=== PATIENT | female | born 1985 | race Hispanic/Latino ===

== ENCOUNTER 2018-07-19 16:15 | Emergency (ER) | payer SELFPAY ==
[2018-07-19] MEDS ORDERED: Ketorolac Tromethamine 30 MG/ML VIAL ONE (16:52)
[2018-07-19 16:59] LABS: Clarity SLIGHTLY (Clear)
[2018-07-19 17:00] LABS: Leukocyte Small (Negative); Nitrite Negative (Negative); Protein, Urine (Dipstick) Negative (Neg-Trace); Specific Gravity, Urine 1.003 (1.002-1.036)
[2018-07-19 17:01] LABS: Bilirubin Negative (Negative); Blood, Urine Trace (Negative); Glucose, Urine (Dipstick) Negative (Negative); Urobilinogen 0.2 mg/dL (0.2-1.0)
[2018-07-19 17:04] LABS: Bacteria/HPF 1+ HPF (None Seen); RBC/HPF 0-3 HPF (0-3); Renal Epithelial None Seen HPF (0-3); Squamous Epithelial 0-3 HPF (0-3); Transitional Epithelial NONE SEEN HPF (0-3); Trichomonas/HPF None Seen HPF (None Seen); Yeast-All Forms None Seen HPF (None Seen)
[2018-07-19 17:05] LABS: Crystals/HPF None Seen HPF (Negative); Hyaline Casts/LPF NONE SEEN LPF (0-3 Hyaline); Other Casts/LPF None Seen LPF (0-3 Hyaline); Oval Fat Bodies/HPF None Seen HPF (None Seen); Sperm/HPF None Seen HPF (None Seen)
[2018-07-19] MEDS ORDERED: traMADol HCl 50 MG TAB ONE (17:26)
[2018-07-19] MEDS ORDERED: Sulfameth/Trimethoprim DS 800-160mg TAB ONE (17:27)
[2018-07-19] MEDS ORDERED: Phenazopyridine HCl 97.5 MG TABLET ONE (17:27)
== END 2018-07-19 17:42 | disposition home or self-care (01) ==
LOC: BURERS 16:15
DX: N39.0 Urinary tract infection, site not specified (principal)
CPT/HCPCS: 81003; 81015; 87077; 87086; 87186; 96374; J1885

== ENCOUNTER 2020-06-12 21:22 | Emergency (ER) | payer SELFPAY ==
[2020-06-12 21:48] LABS: Bilirubin Negative (Negative); Blood, Urine Negative (Negative); Clarity Clear (Clear); Glucose, Urine (Dipstick) Negative (Negative); Ketone, Urine Negative (Negative); Leukocyte Trace (Negative); Nitrite Negative (Negative); Protein, Urine (Dipstick) Negative (Neg-Trace); Specific Gravity, Urine 1.015 (1.005-1.030); Urobilinogen 0.2 mg/dL (Less than 2)
[2020-06-12] MEDS ORDERED: Fentanyl 100 MCG/2 ML VIAL ONE (21:48)
[2020-06-12] MEDS ORDERED: Glycopyrrolate 0.4 MG/ 2 ML VIAL ONE (21:49)
[2020-06-12] MEDS ORDERED: Ondansetron PF 4 MG/2 ML Vial ONE (21:49)
[2020-06-12 21:58] LABS: Bacteria/HPF Rare-Few HPF (None Seen); RBC/HPF None Seen HPF (0-3); Squamous Epithelial 0-3 HPF (0-3); WBC/HPF 0-3 HPF (0-3)
[2020-06-12 22:02] LABS: #Basophils 0.1 thou/uL (0.0-0.2); #Eosinphils 0.2 thou/uL (0.0-0.7); #Lymphocytes 2.6 thou/uL (1.20-3.40); #Monocytes 0.5 thou/uL (0.11-0.59); #Neutrophils 4.5 thou/uL (1.40-6.50); %Basophils 1.3 % (0.0-1.0); %Eosinophils 2.3 % (0.0-10.0); %Lymphocytes 33.1 % (21.0-51.0); %Monocytes 5.9 % (0.0-10.0); %Neutrophils 57.4 % (42.0-75.0); Hemoglobin 16.3 g/dL (12.0-16.0); Mean Corpuscular HGB CONC 32.3 g/dL (32.0-36.0); Mean Corpuscular Hemoglobin 27.2 pg (27.0-31.0); Mean Corpuscular Volume 84.2 fL (78.0-98.0); Mean Platelet Volume 9.9 fL (7.4-10.4); Platelet Count 152 thou/uL (130-400); White Blood Cell (WBC) Count 7.9 thou/uL (4.8-10.8)
[2020-06-12 22:12] LABS: ALT (SGPT) 25 U/L (8-55); AST (SGOT) 38 U/L (5-34); Albumin 4.6 g/dL (3.5-5.0); Alkaline Phosphatase 90 U/L (40-110); Anion Gap 15 mmol/L (10-20); BUN (Urea Nitrogen) 10 mg/dL (7.0-18.7); Bilirubin, Total 0.4 mg/dL (0.2-1.2); Calc. Creatinine Clearance 0 mL/min (70-130); Calcium 9.1 mg/dL (7.8-10.44); Carbon Dioxide 25 mmol/L (22-29); Chloride 103 mmol/L (98-107); Globulin 3.7 g/dL (2.4-3.5); Glucose 98 mg/dL (70-105); Lipase 61 U/L (8-78); Potassium 3.4 mmol/L (3.5-5.1); Protein, Total 8.3 g/dL (6.0-8.3); Sodium 140 mmol/L (136-145)
[2020-06-12 22:49] LABS: Pregnancy Test - Urine (BHCG) Negative (Negative); Pregu Control Background? CLEAR/WHITE (CLR/WHITE); Pregu Control Bar Appear? YES (CONTROL BAR); Specific Gravity 1.015 (1.002-1.036)
[2020-06-12] MEDS ORDERED: Dicyclomine 20 MG TAB ONE (23:23)
[2020-06-12] MEDS ORDERED: Ketorolac Tromethamine 30 MG/ML VIAL ONE (23:23)
--- NOTE | 2020-06-13 07:53 | CT ---
CT OF THE ABDOMEN AND PELVIS WITHOUT CONTRAST: DATE: 06/12/2020. COMPARISON: Comparison is made with a prior study dated 01/04/2019. FINDINGS: The lung bases are clear. The liver, spleen, pancreas, adrenal glands, kidneys, and abdominal aorta showed no acute findings within the limitations of a noncontrast study. There has been a prior pranay cystectomy. There is a rather large amount of foodstuff in the stomach and proximal duodenum. There is no disten tion of any loops of bowel, however. A moderate amount of fecal material is seen in the colon, part icularly the right colon. There is no sign of bowel wall thickening or inflammatory change around [place]. The appendix was identified and appears normal. No free air or free fluid was present. CT of the pelvis shows no pelvic masses, fluid collections, or inflammatory changes. There was no si gn of ureteral calculi or bladder calculi. An incidental finding is bilateral pars defects of L5 wit h slight spondylolisthesis of L5 on S1. IMPRESSION: Mild constipation. Retained foodstuff proximally, but no sign of overt obstruction. Findings called to Dr. Blood at 2308 on 06/12/2020. CODE CR POS: HOME
== END 2020-06-12 23:35 ==
LOC: BURERS 21:22
DX: R10.11 Right upper quadrant pain (principal)
CPT/HCPCS: 74176; 80053; 81003; 81015; 81025; 83690; 85025; 94760; 96374; 96375; 96376; J1885; J2405; J3010

== ENCOUNTER 2022-05-23 17:31 | Emergency (ER) | payer SELFPAY ==
[2022-05-23 18:02] LABS: #Basophils 0.1 thou/uL (0.0-0.2); #Eosinphils 0.1 thou/uL (0.0-0.7); #Lymphocytes 1.7 thou/uL (1.20-3.40); #Monocytes 0.4 thou/uL (0.11-0.59); #Neutrophils 7.6 thou/uL (1.40-6.50); %Basophils 0.7 % (0.0-1.0); %Lymphocytes 16.7 % (21.0-51.0); %Monocytes 4.3 % (0.0-10.0); %Neutrophils 77.3 % (42.0-75.0); Hemoglobin 12.5 g/dL (12.0-16.0); Mean Corpuscular HGB CONC 33.6 g/dL (32.0-36.0); Mean Corpuscular Hemoglobin 27.9 pg (27.0-31.0); Mean Corpuscular Volume 82.9 fl (78.0-98.0); Mean Platelet Volume 7.8 fL (7.4-10.4); Platelet Count 202 10x3/uL (130-400); RBC Distribution Width 13.3 % (11.5-14.5); Red Blood Cell (RBC) Count 4.49 mill/uL (4.20-5.40); White Blood Cell (WBC) Count 9.9 10x3/uL (4.8-10.8)
[2022-05-23 18:07] LABS: Bilirubin Negative (Negative); Blood, Urine Negative (Negative); Clarity Clear (Clear); Glucose, Urine (Dipstick) Negative (Negative); Ketone, Urine Negative (Negative); Leukocyte Trace (Negative); Nitrite Negative (Negative); Protein, Urine (Dipstick) Negative (Neg-Trace); Urobilinogen 0.2 mg/dL (Less than 2)
[2022-05-23 18:19] LABS: Bacteria/HPF 1+ HPF (None Seen); RBC/HPF 0-3 HPF (0-3); WBC/HPF 0-3 HPF (0-3)
[2022-05-23 18:27] LABS: ALT (SGPT) 28 U/L (8-55); AST (SGOT) 24 U/L (5-34); Albumin 3.4 g/dL (3.5-5.0); Alkaline Phosphatase 105 U/L (40-110); Anion Gap 12 mmol/L (10-20); BUN (Urea Nitrogen) 7 mg/dL (7.0-18.7); Bilirubin, Total 0.3 mg/dL (0.2-1.2); Calc. Creatinine Clearance 0 mL/min (70-130); Calcium 8.8 mg/dL (7.8-10.44); Carbon Dioxide 20 mmol/L (22-29); Chloride 110 mmol/L (98-107); Estimated GFR 119; Globulin 3.3 g/dL (2.4-3.5); Glucose 104 mg/dL (70-105); Potassium 3.4 mmol/L (3.5-5.1); Protein, Total 6.7 g/dL (6.0-8.3); Sodium 139 mmol/L (136-145)
[2022-05-24 22:48] LABS: Chlam.trachomatis by PCR,Urine Not Detected (NotDetected)
== END 2022-05-23 19:34 | disposition home or self-care (01) ==
LOC: BURERS 17:31
DX: O99.891 Other specified diseases and conditions complicating pregnancy (principal); R10.9 Unspecified abdominal pain; Z3A.00 Weeks of gestation of pregnancy not specified
CPT/HCPCS: 36415; 80053; 81003; 81015; 83605; 84702; 85025; 87086; 87491; 87591; 99284